=== PATIENT | male | born 1965 | race Two or more races ===

== ENCOUNTER 2020-08-27 13:47 | Emergency (ER) | payer OTHER, SELFPAY ==
[~2020-08-27] VITALS: Ht 167.6 cm; Wt 111.4 kg
[2020-08-27] MEDS ORDERED: SODIUM CHLORIDE FLUSH 10ML SYR IVF ONE (15:00)
[2020-08-27] MEDS ORDERED: ASPIRIN 81 MG TABLET CHEW PO ONE (15:00)
[2020-08-27] MEDS ORDERED: ASPIRIN 81 MG TABLET CHEW ONE (15:18)
[2020-08-27 15:20] LABS: BASOPHILS % (AUTO) 1 % (0-1); EOSINOPHILS % (AUTO) 1 % (1-7); LYMPHOCYTES % (AUTO) 28 % (22-44); MEAN CORPUSCULAR HGB CONC 33.6 g/dL (33.2-36.2); MEAN PLATELET VOLUME 7.2 fL (7.4-10.4); MONOCYTES % (AUTO) 7 % (2-9); NEUTROPHILS % (AUTO) 64 % (42-75); PLATELET COUNT 254 x10^3/uL (130-400); RED BLOOD COUNT 5.49 x10^6/uL (4.38-5.82); RED CELL DISTRIBUTION WIDTH 13.1 % (9.4-14.8)
[2020-08-27 15:25] LABS: MD NO
[2020-08-27 15:30] LABS: ALANINE AMINOTRANSFERASE 28 U/L (12-78); ALBUMIN 3.9 g/dL (3.4-5.0); ANION GAP 6 mmol/L (5-15); CALCIUM 8.8 mg/dL (8.5-10.1); CHLORIDE 108 mmol/L (98-107); CREATININE 0.88 mg/dL (0.7-1.3)
[2020-08-27 15:34] LABS: ALKALINE PHOSPHATASE 50 U/L (45-117); BILIRUBIN,TOTAL 0.4 mg/dL (0.2-1.0); TOTAL PROTEIN 7.6 g/dL (6.4-8.2); TROPONIN I < 0.015 ng/mL (0.000-0.045)
[2020-08-27 15:37] VITALS: BP 126/78
[2020-08-27] MEDS ORDERED: LORazepam 1MG TABLET ONE (15:46)
[2020-08-27] MEDS ORDERED: MECLIZINE CHEWABLE 25 MG TAB PO ONE (17:00)
[2020-08-27] MEDS ORDERED: MECLIZINE CHEWABLE 25 MG TAB ONE (17:04)
--- NOTE | 2020-08-27 17:07 | NUR ---
Break RN note: Pt ambulatory to bathroom and back to bed without difficulty, gait steady. Pt c/o dizziness only when moving. Pt medicated for dizziness per JAN. Pt provided water per request. Pt denies other needs.
[2020-08-27] MEDS ORDERED: LORazepam 1MG TABLET PO ONE (18:00)
== END 2020-08-27 17:47 | disposition home or self-care (01) ==
LOC: ED 14:43
DX: H81.10 Benign paroxysmal vertigo, unspecified ear (principal); R41.82 Altered mental status, unspecified; R51.9 Headache, unspecified; R07.9 Chest pain, unspecified; R06.02 Shortness of breath; R20.0 Anesthesia of skin; I10 Essential (primary) hypertension
CPT/HCPCS: 36415; 70450; 71045; 80053; 83605; 84484; 85025; 93005; 99285

== ENCOUNTER 2020-10-16 12:17 | Emergency (ER) | payer OTHER ==
[~2020-10-16] VITALS: Ht 167.6 cm; Wt 109.0 kg
[2020-10-16] MEDS ORDERED: DEXAMETHASONE 4 MG TABLET PO ONE (12:30)
[2020-10-16] MEDS ORDERED: DEXAMETHASONE 4 MG TABLET ONE (13:43)
[2020-10-16 13:50] VITALS: BP 146/80
== END 2020-10-16 13:56 | disposition home or self-care (01) ==
LOC: ED 13:50
DX: U07.1 COVID-19 (principal); B34.9 Viral infection, unspecified; R06.02 Shortness of breath; I10 Essential (primary) hypertension; E11.9 Type 2 diabetes mellitus without complications
CPT/HCPCS: 71045; 93005; 99283